=== PATIENT | male | born 1980 | race Hispanic/Latino ===

== ENCOUNTER 2019-08-25 07:55 | Emergency (ER) | payer OTHER ==
[2019-08-25] MEDS ORDERED: Lidocaine 1% (PF) 30 ML VIAL ONE (08:08)
[2019-08-25] MEDS ORDERED: Adacel (T-DAP) 0.5 ML SYRINGE ONE (08:08)
--- NOTE | 2019-08-25 09:28 | RAD ---
RIGHT HAND 3 VIEWS: Date: 08/25/2019 HISTORY: Injury, right hand pain. FINDINGS/IMPRESSION: There is a fracture involving the tuft of the distal phalanx of the right index finger. POS: [facility]
[2019-08-25] MEDS ORDERED: Bacitracin 1 PK ONE (09:37)
== END 2019-08-25 09:57 | disposition home or self-care (01) ==
LOC: NAV ERS 07:55
DX: S62.630A Displaced fracture of distal phalanx of right index finger, initial encounter for closed fracture (principal); S61.214A Laceration without foreign body of right ring finger without damage to nail, initial encounter; S60.121A Contusion of right index finger with damage to nail, initial encounter; I10 Essential (primary) hypertension; W23.0XXA Caught, crushed, jammed, or pinched between moving objects, initial encounter; W31.89XA Contact with other specified machinery, initial encounter
CPT/HCPCS: 12034; 90471; 90715; J2001